=== PATIENT | female | born 1970 | race African-American/Black ===

== ENCOUNTER 2021-03-16 18:48 | Emergency (ER) | payer MEDICARE, MEDICAID ==
[~2021-03-16] VITALS: Ht 175.3 cm; Wt 200.0 kg
[2021-03-16] MEDS ORDERED: IBUPROFEN 600MG TABLET PO ONE (20:30)
[2021-03-16] MEDS ORDERED: HYDROCODONE/ACETAMINOPHEN 5/325MG TABLET PO ONE (22:45)
[2021-03-16] MEDS ORDERED: HYDR-4001 MT (22:45)
[2021-03-16] MEDS ORDERED: IBUP-2028 MT (22:45)
[2021-03-17] VITALS: BP 158/77
== END 2021-03-17 01:58 | disposition home or self-care (01) ==
LOC: ER 18:48
DX: S82.042A Displaced comminuted fracture of left patella, initial encounter for closed fracture (principal); S76.112A Strain of left quadriceps muscle, fascia and tendon, initial encounter; M25.562 Pain in left knee; F17.200 Nicotine dependence, unspecified, uncomplicated; Z79.899 Other long term (current) drug therapy; W01.0XXA Fall on same level from slipping, tripping and stumbling without subsequent striking against object, initial encounter; Y93.89 Activity, other specified; Y92.89 Other specified places as the place of occurrence of the external cause; Y99.8 Other external cause status
CPT/HCPCS: 29505; 73560; 93005; 99283